=== PATIENT | male | born 1955 | race Hispanic/Latino ===

== ENCOUNTER 2018-03-22 15:22 | Emergency (ER) | payer OTHER | END 2018-03-22 16:44 | disposition home or self-care (01) | LOC: EDH 15:22 | DX: R53.1 Weakness (principal); G47.00 Insomnia, unspecified; Z88.0 Allergy status to penicillin; Z72.0 Tobacco use | CPT/HCPCS: 99281 ==

== ENCOUNTER 2021-10-03 07:45 | Emergency (ER) | payer OTHER ==
[~2021-10-03] VITALS: Ht 162.6 cm; Wt 60.8 kg
[2021-10-03 08:29] LABS: BASOPHILS % (AUTO) 0.8 % (0.0-5.0); HEMATOCRIT 43.7 % (42-54); LYMPHOCYTES % (AUTO) 15.1 % (21.0-51.0); MEAN CORPUSCULAR HEMOGLOBIN 29.9 pg (27.0-33.0); MEAN CORPUSCULAR VOLUME 90.7 fL (79-99); MONOCYTES % (AUTO) 5.7 % (3.0-13.0); NEUTROPHILS % (AUTO) 77.1 % (40.0-77.0); PLATELET COUNT (AUTO) 354 K/uL (130-400); RED BLOOD CELL COUNT(AUTO) 4.82 MIL/uL (4.50-6.20); WHITE BLOOD COUNT (AUTO) 9.7 K/uL (4.8-10.8)
[2021-10-03 08:39] LABS: CREATININE 0.9 mg/dL (0.5-1.5); POTASSIUM 4.2 mmol/L (3.5-5.1)
[2021-10-03 08:43] LABS: ALBUMIN 4.1 g/dL (3.5-5.0); BILIRUBIN,TOTAL 0.8 mg/dL (0.2-1.0); TOTAL PROTEIN, SERUM 8.6 g/dL (6.0-8.3)
[2021-10-03 09:08] LABS: APPEARANCE,URINE Clear (CLEAR); BILIRUBIN,URINE Negative (NEGATIVE); COLOR,URINE Yellow (YELLOW); GLUCOSE, URINE (UA) Negative (NEGATIVE); KETONES,URINE 40 mg/dL (NEGATIVE); LEUKOCYTE ESTERASE ,URINE Negative (NEGATIVE); NITRATE,URINE Negative (NEGATIVE); OCCULT BLOOD,URINE Moderate (NEGATIVE); PROTEIN,URINE Trace mg/dL (NEGATIVE); UROBILINOGEN,URINE 0.2 mg/dL (0.2-1.0)
[2021-10-03 09:27] LABS: BACTERIA,URINE Rare /HPF (None Seen); SQUAMOUS EPITHELIAL CELL,UR Rare /HPF (0-2); WBC,URINE 0-1 /HPF (0-1)
[2021-10-03] MEDS ORDERED: 0.9%NACL 1000ML 1,000 ML IV ONE (09:30)
[2021-10-03] MEDS ORDERED: ONDANSETRON 4MG INJ ONE (09:46)
[2021-10-03] MEDS ORDERED: MORPHINE 4 MG SYG ONE (09:46)
[2021-10-03] MEDS ORDERED: MORPHINE 4 MG SYG IM ONE (10:00)
[2021-10-03] MEDS ORDERED: ONDANSETRON 4MG INJ IVP ONE (10:00)
[2021-10-03] MEDS ORDERED: NAPR-1180 PO (11:48)
[2021-10-03 11:56] VITALS: BP 149/70
== END 2021-10-03 12:08 | disposition home or self-care, planned readmission (81) ==
LOC: EDH 07:45
DX: R33.9 Retention of urine, unspecified (principal); R10.2 Pelvic and perineal pain; K40.90 Unilateral inguinal hernia, without obstruction or gangrene, not specified as recurrent; E86.0 Dehydration
CPT/HCPCS: 36415; 74176; 80053; 81001; 82550; 85025; 96361; 96372; 96374; 99285; J2270; J2405; J7030

== ENCOUNTER 2021-10-13 00:17 | Emergency (ER) | payer OTHER ==
[~2021-10-13] VITALS: Ht 162.6 cm; Wt 70.8 kg
[~2021-10-13 00:17] MED LIST: NAPR-1180 PO
[2021-10-13 00:48] LABS: APPEARANCE,URINE Cloudy (CLEAR); BILIRUBIN,URINE Negative (NEGATIVE); COLOR,URINE Yellow (YELLOW); GLUCOSE, URINE (UA) Negative (NEGATIVE); KETONES,URINE Trace mg/dL (NEGATIVE); LEUKOCYTE ESTERASE ,URINE Large (NEGATIVE); NITRATE,URINE Negative (NEGATIVE); OCCULT BLOOD,URINE Moderate (NEGATIVE); PH,URINE 6.5 (5.0-8.0); PROTEIN,URINE Trace mg/dL (NEGATIVE); UROBILINOGEN,URINE 0.2 mg/dL (0.2-1.0)
[2021-10-13 00:58] LABS: BACTERIA,URINE Rare /HPF (None Seen); MUCUS,URINE Rare LPF (None Seen); RBC,URINE None Seen /HPF (0-1); SQUAMOUS EPITHELIAL CELL,UR Few /HPF (0-2)
[2021-10-13] MEDS ORDERED: CEFTRIAXONE 1G VIAL IVP ONE (02:00)
[2021-10-13] MEDS ORDERED: PHENAZOPYRIDINE HCL 200 MG TABLET PO ONE (02:00)
[2021-10-13 02:47] LABS: BASOPHILS % (AUTO) 0.4 % (0.0-5.0); EOSINOPHILS % (AUTO) 0.6 % (0.0-8.0); HEMATOCRIT 37.1 % (42-54); MEAN CORPUSCULAR HEMOGLOBIN 31.3 pg (27.0-33.0); MEAN CORPUSCULAR VOLUME 92.1 fL (79-99); NEUTROPHILS % (AUTO) 80.3 % (40.0-77.0); PLATELET COUNT (AUTO) 283 K/uL (130-400); RED BLOOD CELL COUNT(AUTO) 4.03 MIL/uL (4.50-6.20); RED CELL DISTRIBUTION WIDTH 13.8 % (11.0-15.5); WHITE BLOOD COUNT (AUTO) 10.6 K/uL (4.8-10.8)
[2021-10-13 03:11] LABS: CREATININE 0.7 mg/dL (0.5-1.5); POTASSIUM 4.3 mmol/L (3.5-5.1)
[2021-10-13] MEDS ORDERED: MACR100 PO (04:22)
[2021-10-13] MEDS ORDERED: PHEN-847 PO (04:22)
[2021-10-13 04:45] VITALS: BP 137/72
== END 2021-10-13 04:46 | disposition home or self-care (01) ==
LOC: EDH 00:17
DX: T83.518A Infection and inflammatory reaction due to other urinary catheter, initial encounter (principal); N39.0 Urinary tract infection, site not specified; Y84.6 Urinary catheterization as the cause of abnormal reaction of the patient, or of later complication, without mention of misadventure at the time of the procedure; Z79.1 Long term (current) use of non-steroidal anti-inflammatories (NSAID)
CPT/HCPCS: 36415; 76770; 80048; 81001; 83605; 85025; 87077; 87088; 87186; 96374; 99284; J0696

== ENCOUNTER → 2021-12-21 | Outpatient (CLI) | payer OTHER, MEDICARE ==
[~2021-12-21] MED LIST changes: +MACR100 PO; +PHEN-847 PO
== END | disposition home or self-care (01) ==
LOC: RAH 09:08
PROVIDERS: ATTEND Internal Medicine
DX: R14.0 Abdominal distension (gaseous) (principal)
CPT/HCPCS: 76700

== ENCOUNTER 2022-01-24 07:20 | Emergency (ER) | payer OTHER, MEDICARE ==
[~2022-01-24] VITALS: Ht 162.6 cm; Wt 65.8 kg
[2022-01-24] MEDS ORDERED: ORPHENADRINE CITRATE 30 MG/ML ML IM ONE (08:00)
[2022-01-24] MEDS ORDERED: MORPHINE 4 MG SYG IM ONE (08:00)
[2022-01-24 08:19] LABS: BASOPHILS % (AUTO) 0.3 % (0.0-5.0); EOSINOPHILS % (AUTO) 1.6 % (0.0-8.0); LYMPHOCYTES % (AUTO) 11.6 % (21.0-51.0); MEAN CORPUSCULAR HEMOGLOBIN 30.3 pg (27.0-33.0); MEAN CORPUSCULAR HGB CONC 33.8 g/dL (32.0-36.0); MEAN CORPUSCULAR VOLUME 89.9 fL (79-99); MONOCYTES % (AUTO) 8.7 % (3.0-13.0); NEUTROPHILS % (AUTO) 77.2 % (40.0-77.0); PLATELET COUNT (AUTO) 331 K/uL (130-400); RED BLOOD CELL COUNT(AUTO) 3.56 MIL/uL (4.50-6.20); WHITE BLOOD COUNT (AUTO) 8.8 K/uL (4.8-10.8)
[2022-01-24 08:19] LABS: APPEARANCE,URINE CLEAR (CLEAR); BILIRUBIN,URINE NEGATIVE (NEGATIVE); COLOR,URINE YELLOW (YELLOW); GLUCOSE, URINE (UA) NEGATIVE (NEGATIVE); KETONES,URINE NEGATIVE (NEGATIVE); LEUKOCYTE ESTERASE ,URINE NEGATIVE (NEGATIVE); NITRATE,URINE NEGATIVE (NEGATIVE); OCCULT BLOOD,URINE SMALL (NEGATIVE); PROTEIN,URINE NEGATIVE (NEGATIVE); UROBILINOGEN,URINE 0.2 mg/dL (0.2-1.0)
[2022-01-24 08:42] LABS: BACTERIA,URINE Rare /HPF (None Seen); RBC,URINE 0-1 /HPF (0-1); SQUAMOUS EPITHELIAL CELL,UR Rare /HPF (0-2); WBC,URINE 0-1 /HPF (0-1)
[2022-01-24 09:36] LABS: CREATININE 0.7 mg/dL (0.5-1.5); MAGNESIUM 1.8 mg/dL (1.80-2.40); POTASSIUM 3.7 mmol/L (3.5-5.1)
[2022-01-24] MEDS ORDERED: KETOROLAC 60 MG VIAL (30MG/ML) IM ONE (10:30)
[2022-01-24 12:08] VITALS: BP 121/49
[2022-01-24] MEDS ORDERED: TRAM50TA4 PO (12:44)
[2022-01-24] MEDS ORDERED: IBUP-2070 PO (12:44)
[2022-01-24] MEDS ORDERED: DIAZ2TAB PO (12:44)
== END 2022-01-24 12:59 | disposition home or self-care (01) ==
LOC: EDH 07:20
DX: M79.18 Myalgia, other site (principal); M54.2 Cervicalgia; R51.9 Headache, unspecified; M54.6 Pain in thoracic spine; E78.00 Pure hypercholesterolemia, unspecified; Z79.1 Long term (current) use of non-steroidal anti-inflammatories (NSAID)
CPT/HCPCS: 99284; 82550; 83735; 84484; 80048; 85025; 81001; 36415; 96372 ×3; 93005; J2270; J1885; J2360

== ENCOUNTER → 2022-05-30 | Outpatient (CLI) | payer OTHER, MEDICARE ==
[~2022-05-30] MED LIST changes: +DIAZ2TAB PO; +IBUP-2070 PO; +TRAM50TA4 PO
== END | disposition home or self-care (01) ==
LOC: RAH 06:55
PROVIDERS: ATTEND Internal Medicine
DX: R10.9 Unspecified abdominal pain (principal)
CPT/HCPCS: 78264; A9541

== ENCOUNTER 2022-08-02 07:10 | Day surgery (SDC) | payer OTHER, MEDICARE ==
[2022-07-27 10:43] VITALS: BP 156/68
[2022-07-27 10:49] LABS: BASOPHILS % (AUTO) 0.7 % (0.0-5.0); EOSINOPHILS % (AUTO) 1.2 % (0.0-8.0); HEMATOCRIT 38.7 % (42-54); LYMPHOCYTES % (AUTO) 16.3 % (21.0-51.0); MEAN CORPUSCULAR HEMOGLOBIN 29.7 pg (27.0-33.0); MEAN CORPUSCULAR VOLUME 92.6 fL (79-99); MONOCYTES % (AUTO) 4.6 % (3.0-13.0); NEUTROPHILS % (AUTO) 76.8 % (40.0-77.0); PLATELET COUNT (AUTO) 320 K/uL (130-400); RED BLOOD CELL COUNT(AUTO) 4.18 MIL/uL (4.50-6.20); RED CELL DISTRIBUTION WIDTH 14.9 % (11.0-15.5); WHITE BLOOD COUNT (AUTO) 7.4 K/uL (4.8-10.8)
[2022-07-27 10:57] LABS: CREATININE 0.9 mg/dL (0.5-1.5); POTASSIUM 4.1 mmol/L (3.5-5.1)
[2022-07-27 11:13] LABS: APPEARANCE,URINE CLEAR (CLEAR); BILIRUBIN,URINE NEGATIVE (NEGATIVE); COLOR,URINE LIGHT-YELLOW (YELLOW); GLUCOSE, URINE (UA) NEGATIVE (NEGATIVE); KETONES,URINE NEGATIVE (NEGATIVE); LEUKOCYTE ESTERASE ,URINE NEGATIVE Leu/uL (NEGATIVE); NITRATE,URINE NEGATIVE (NEGATIVE); PH,URINE 5.5 (5.0-8.0); PROTEIN,URINE NEGATIVE (NEGATIVE); UROBILINOGEN,URINE 0.2 mg/dL (0.2-1.0)
[2022-07-27 11:25] LABS: BACTERIA,URINE RARE /HPF (None Seen); MUCUS,URINE RARE LPF (None Seen); WBC,URINE 0-1 /HPF (0-1)
[2022-08-02] VITALS (11 sets, daily range): BP systolic 75–142; BP diastolic 37–71
[~2022-08-02] VITALS: Ht 162.6 cm; Wt 74.4 kg
[2022-08-02] MEDS ORDERED: LACTATED RINGERS 1000ML 1,000 ML IV ONE (08:00)
[2022-08-02] MEDS ORDERED: GENTAMICIN 80 MG/NS 100 ML PB 100 ML IV PRN (08:00)
[2022-08-02] MEDS ORDERED: FAMOTIDINE 20MG VIAL IV ONE (08:12)
[2022-08-02] MEDS: CEFTRIAXONE 1G VIAL IVPB PRN ×2 (08:22→09:42)
[2022-08-02] MEDS ORDERED: LIDOCAINE PF 100MG/5ML (2%) SYRINGE 5ML ONE (09:32)
[2022-08-02] MEDS ORDERED: PROPOFOL 10 MG/ML 20ML VIAL IV ONE ×2 (09:32→09:58)
[2022-08-02] MEDS ORDERED: FENTANYL CITRATE PF 50 MCG/1 ML 2ML VIAL ONE (09:59)
[2022-08-02] MEDS ORDERED: GLYCOPYRROLATE 1 MG/5 ML SYRINGE ONE (10:20)
== END 2022-08-02 11:29 | disposition home or self-care (01) ==
LOC: DAH 07:10
PROVIDERS: ATTEND Urology
DX: R97.20 Elevated prostate specific antigen [PSA] (principal); C61 Malignant neoplasm of prostate; Z20.822 Contact with and (suspected) exposure to COVID-19; K21.9 Gastro-esophageal reflux disease without esophagitis; E78.5 Hyperlipidemia, unspecified; M19.90 Unspecified osteoarthritis, unspecified site; Z79.899 Other long term (current) drug therapy; Z83.3 Family history of diabetes mellitus; Z98.890 Other specified postprocedural states; Z79.01 Long term (current) use of anticoagulants
CPT/HCPCS: 80048; 85025; 87088; 87426; 81001; 36415; 93005; 55700; 88305; 76942; 76872; A6260; A4663; J7120; J3490 ×2; J3010; J2001; J0696; J2704 ×2; J1580; A4215 ×2; A4649; A4223; A4222; A4221; A4600

== ENCOUNTER → 2022-11-13 | Outpatient (CLI) | payer OTHER, MEDICARE | END | disposition home or self-care (01) | LOC: SHCH 15:36 | PROVIDERS: ATTEND Internal Medicine Cardiovascular Disease | DX: I65.23 Occlusion and stenosis of bilateral carotid arteries (principal); R09.89 Other specified symptoms and signs involving the circulatory and respiratory systems | CPT/HCPCS: 93880 ==

== ENCOUNTER → 2022-11-21 | Outpatient (CLI) | payer OTHER, MEDICARE ==
[2022-11-21 16:33] LABS: CREATININE 0.9 mg/dL (0.5-1.5); POTASSIUM 3.8 mmol/L (3.5-5.1)
== END | disposition home or self-care (01) ==
LOC: LAB 13:50
PROVIDERS: ATTEND Internal Medicine Cardiovascular Disease
DX: I10 Essential (primary) hypertension (principal)
CPT/HCPCS: 36415; 80048

== ENCOUNTER → 2022-11-26 | Outpatient (CLI) | payer OTHER, MEDICARE ==
[~2022-11-26] MED LIST changes: -DIAZ2TAB PO; -IBUP-2070 PO; +IOHEXOL 350 MG/ML 100ML INFUS..BTL IV ONE; -MACR100 PO; -NAPR-1180 PO; -PHEN-847 PO; -TRAM50TA4 PO
== END | disposition home or self-care (01) ==
LOC: RAH 09:08
PROVIDERS: ATTEND Internal Medicine Cardiovascular Disease
DX: I65.23 Occlusion and stenosis of bilateral carotid arteries (principal)
CPT/HCPCS: 70498; Q9967

== ENCOUNTER → 2022-12-24 | Outpatient (CLI) | payer OTHER, MEDICARE | END | disposition home or self-care (01) | LOC: RAH 12:58 | PROVIDERS: ATTEND Internal Medicine Cardiovascular Disease | DX: G81.94 Hemiplegia, unspecified affecting left nondominant side (principal) | CPT/HCPCS: 70551 ==

== ENCOUNTER 2023-01-04 06:33 | Day surgery (SDC) | payer OTHER, MEDICARE ==
[2023-01-02 09:00] LABS: BASOPHILS # (AUTO) 0.04 K/uL (0.00-0.20); BASOPHILS % (AUTO) 0.6 % (0.0-5.0); EOSINOPHILS # (AUTO) 0.09 K/uL (0.00-0.70); EOSINOPHILS % (AUTO) 1.2 % (0.0-8.0); HEMATOCRIT 40.4 % (42-54); IMMATURE GRANULOCYTE ABSOLUTE 0.04 K/uL (0-1); LYMPHOCYTES # (AUTO) 1.2 K/uL (1.0-4.8); MEAN CORPUSCULAR HEMOGLOBIN 30.8 pg (27.0-33.0); MEAN CORPUSCULAR HGB CONC 32.4 g/dL (32.0-36.0); MEAN CORPUSCULAR VOLUME 94.8 fL (79-99); MONOCYTES # (AUTO) 0.5 K/uL (0.1-1.0); MONOCYTES % (AUTO) 7.5 % (3.0-13.0); NEUTROPHILS # (AUTO) 5.4 K/uL (1.8-7.7); NEUTROPHILS % (AUTO) 74.1 % (40.0-77.0); PLATELET COUNT (AUTO) 291 K/uL (130-400); RED BLOOD CELL COUNT(AUTO) 4.26 MIL/uL (4.50-6.20); RED CELL DISTRIBUTION WIDTH 14.4 % (11.0-15.5); WHITE BLOOD COUNT (AUTO) 7.2 K/uL (4.8-10.8)
[2023-01-02 09:02] VITALS: BP 173/70; PULSE 72; RESP 18
[2023-01-02 09:02] LABS: ADD UA MICROSCOPIC YES; APPEARANCE,URINE CLEAR (CLEAR); BILIRUBIN,URINE NEGATIVE (NEGATIVE); COLOR,URINE LIGHT-YELLOW (YELLOW); GLUCOSE, URINE (UA) NEGATIVE (NEGATIVE); KETONES,URINE NEGATIVE (NEGATIVE); LEUKOCYTE ESTERASE ,URINE NEGATIVE Leu/uL (NEGATIVE); NITRATE,URINE NEGATIVE (NEGATIVE); OCCULT BLOOD,URINE MODERATE (NEGATIVE); PH,URINE 5.5 (5.0-8.0); PROTEIN,URINE NEGATIVE (NEGATIVE); UROBILINOGEN,URINE 0.2 mg/dL (0.2-1.0)
[2023-01-02 09:05] LABS: MUCUS,URINE RARE LPF (None Seen)
[2023-01-02 09:15] LABS: INR 0.93 (0.85-1.15); PROTHROMBIN TIME 10.3 SEC (9.6-11.6)
[2023-01-02 09:16] LABS: PARTIAL THROMBOPLASTIN TIME 28.7 SEC (26.3-35.5)
[2023-01-02 09:17] LABS: CREATININE 0.9 mg/dL (0.5-1.5); POTASSIUM 4.6 mmol/L (3.5-5.1)
[2023-01-02 09:53] LABS: B-TYPE NATRIURETIC PEPTIDE 75 pg/mL (0-100)
[2023-01-04] VITALS (11 sets, daily range): BP systolic 127–159; BP diastolic 47–74; PULSE 55–81; RESP 10–18
[~2023-01-04] VITALS: Ht 154.9 cm; Wt 72.3 kg
[~2023-01-04 06:33] MED LIST changes: +ACET-2743 PO; +AEC81 PO; +ATOR10 PO; +CHOL2000 PO; +CLOP75TA32 PO; +FERR324T4 PO; -IOHEXOL 350 MG/ML 100ML INFUS..BTL IV ONE; +LINA145C PO; +METO-296 PO; +METO5TAB87 PO; +PANT40TA54 PO; +TAMS-1 PO; +TRAZ-187 PO; +VITAMIN B12 PO
[2023-01-04] MEDS ORDERED: 0.9%NACL 1000ML 1,000 ML IV ONE (07:08)
[2023-01-04] MEDS ORDERED: LIDOCAINE HCL 400MG/20ML VIAL ONE (09:24)
[2023-01-04] MEDS ORDERED: SODIUM BICARB 50MEQ 50ML VIAL 50 ML ONE (09:25)
[2023-01-04] MEDS ORDERED: IODIXANOL 320 MG/ML 100 ML VIAL ONE (09:25)
[2023-01-04] MEDS ORDERED: NITROGLYCERIN 50MG VIAL ONE (09:25)
[2023-01-04] MEDS ORDERED: MEPERIDINE-PF 25 MG/ML SYG ONE (10:25)
[2023-01-04] MEDS ORDERED: MIDAZOLAM HCL 1 MG/ML 2ML VIAL ONE (10:26)
[2023-01-04] MEDS ORDERED: DiphenhydrAMINE HCL 50 MG/ML VIAL ONE (10:49)
[2023-01-04] MEDS ORDERED: SOLU-MEDROL 125MG VIAL ONE (10:58)
[2023-01-04] MEDS ORDERED: 0.9%NACL 1000ML 1,000 ML IV SCH (11:30)
== END 2023-01-04 16:30 | disposition home or self-care (01) ==
LOC: DAH 06:33
PROVIDERS: ATTEND Internal Medicine Cardiovascular Disease
DX: I65.23 Occlusion and stenosis of bilateral carotid arteries (principal); Z87.891 Personal history of nicotine dependence; Z79.82 Long term (current) use of aspirin; Z86.73 Personal history of transient ischemic attack (TIA), and cerebral infarction without residual deficits; Z79.01 Long term (current) use of anticoagulants; Z79.899 Other long term (current) drug therapy
CPT/HCPCS: 80048; 83880; 85025; 85610; 85730; 81001; 36415; 71045; 93005; 36223; 36226; C1769; C1894; C1760; J1200; J3490 ×2; J7030; J2930; J2250; J2175; J1644; Q9967; A4215; A4222; A4221; A4663; A4216; A4606; A4223 ×3; 96360; 96361; 99156; 99157

== ENCOUNTER 2023-08-13 11:54 | Emergency (ER) | payer OTHER, MEDICARE ==
[~2023-08-13] VITALS: Ht 162.6 cm; Wt 67.1 kg
[2023-08-13] MEDS: HYDROCODONE/ACETAMINOPHEN 5/325 MG TAB PO ONE (13:04)
[2023-08-13] MEDS: CYCLOBENZAPRINE HCL 10 MG TABLET PO ONE (13:04)
[2023-08-13] MEDS: DEXAMETHASONE SOD PHOSPHATE 4 MG/ML 1ML VIAL IVP ONE (13:04)
[2023-08-13] MEDS: KETOROLAC 30MG VIAL (30MG/ML) IVP ONE (13:05)
[2023-08-13] MEDS ORDERED: IBUP-2070 PO (13:49)
[2023-08-13] MEDS ORDERED: CYCL-309 PO (13:49)
[2023-08-13 14:12] VITALS: BP 138/69; PULSE 73; RESP 17; O2SAT 18
== END 2023-08-13 14:15 | disposition home or self-care (01) ==
LOC: EDH 11:54
DX: S39.012A Strain of muscle, fascia and tendon of lower back, initial encounter (principal); E11.9 Type 2 diabetes mellitus without complications; Z79.82 Long term (current) use of aspirin; Z79.899 Other long term (current) drug therapy; Z98.890 Other specified postprocedural states; Z88.8 Allergy status to other drugs, medicaments and biological substances; X58.XXXA Exposure to other specified factors, initial encounter; Y93.89 Activity, other specified; Y92.89 Other specified places as the place of occurrence of the external cause; Y99.8 Other external cause status
CPT/HCPCS: 99284; 96374; 96375; 72100; J1100; J1885

== ENCOUNTER → 2023-08-26 | Outpatient (CLI) | payer OTHER, MEDICARE ==
[~2023-08-26] MED LIST changes: +CYCL-309 PO; +IBUP-2070 PO; +IOHEXOL 350 MG/ML 100ML INFUS..BTL IV ONE
== END | disposition home or self-care (01) ==
LOC: RAH 10:21
PROVIDERS: ATTEND Internal Medicine
DX: M47.26 Other spondylosis with radiculopathy, lumbar region (principal); M54.41 Lumbago with sciatica, right side; M48.07 Spinal stenosis, lumbosacral region; M43.16 Spondylolisthesis, lumbar region
CPT/HCPCS: 72133; Q9967

== ENCOUNTER → 2023-10-01 | Outpatient (CLI) | payer OTHER, MEDICARE ==
[~2023-10-01] MED LIST changes: -IOHEXOL 350 MG/ML 100ML INFUS..BTL IV ONE
[2023-10-01 11:33] LABS: BASOPHILS # (AUTO) 0.04 K/uL (0.00-0.20); BASOPHILS % (AUTO) 0.5 % (0.0-5.0); EOSINOPHILS # (AUTO) 0.11 K/uL (0.00-0.70); EOSINOPHILS % (AUTO) 1.5 % (0.0-8.0); HEMATOCRIT 35.6 % (42-54); IMMATURE GRANULOCYTE ABSOLUTE 0.05 K/uL (0-1); LYMPHOCYTES # (AUTO) 1.3 K/uL (1.0-4.8); LYMPHOCYTES % (AUTO) 16.6 % (21.0-51.0); MEAN CORPUSCULAR HEMOGLOBIN 28.3 pg (27.0-33.0); MEAN CORPUSCULAR HGB CONC 31.7 g/dL (32.0-36.0); MONOCYTES # (AUTO) 0.4 K/uL (0.1-1.0); MONOCYTES % (AUTO) 5.8 % (3.0-13.0); NEUTROPHILS # (AUTO) 5.7 K/uL (1.8-7.7); NEUTROPHILS % (AUTO) 74.9 % (40.0-77.0); PLATELET COUNT (AUTO) 369 K/uL (130-400); RED CELL DISTRIBUTION WIDTH 16.4 % (11.0-15.5); WHITE BLOOD COUNT (AUTO) 7.5 K/uL (4.8-10.8)
[2023-10-01 11:42] LABS: % IRON SATURATION 7.8 % (30-44)
[2023-10-01 11:56] LABS: ALBUMIN 3.7 g/dL (3.5-5.0); BILIRUBIN,TOTAL 0.1 mg/dL (0.2-1.0); CREATININE 0.7 mg/dL (0.5-1.3)
== END | disposition home or self-care (01) ==
LOC: LAB 10:06
PROVIDERS: ATTEND Internal Medicine Gastroenterology
DX: K38.8 Other specified diseases of appendix (principal); D50.9 Iron deficiency anemia, unspecified
CPT/HCPCS: 36415; 80053; 82728; 83540; 83550; 85025

== ENCOUNTER → 2023-10-07 | Outpatient (CLI) | payer OTHER, MEDICARE ==
[~2023-10-07] MED LIST changes: +IOHEXOL-350 75 ML VIAL IV ONE
== END | disposition home or self-care (01) ==
LOC: RAH 10:09
PROVIDERS: ATTEND Internal Medicine Gastroenterology
DX: K38.8 Other specified diseases of appendix (principal); K40.90 Unilateral inguinal hernia, without obstruction or gangrene, not specified as recurrent; K57.30 Diverticulosis of large intestine without perforation or abscess without bleeding; J44.9 Chronic obstructive pulmonary disease, unspecified; M47.815 Spondylosis without myelopathy or radiculopathy, thoracolumbar region
CPT/HCPCS: 74176; Q9967

== ENCOUNTER → 2024-01-08 | Outpatient (CLI) | payer OTHER, MEDICARE ==
[~2024-01-08] MED LIST changes: +HYDR-3421 PO; -IOHEXOL-350 75 ML VIAL IV ONE
== END | disposition home or self-care (01) ==
LOC: SHCH 07:36
PROVIDERS: ATTEND Internal Medicine Cardiovascular Disease
DX: I65.23 Occlusion and stenosis of bilateral carotid arteries (principal); I25.10 Atherosclerotic heart disease of native coronary artery without angina pectoris; E78.5 Hyperlipidemia, unspecified; I10 Essential (primary) hypertension; I69.993 Ataxia following unspecified cerebrovascular disease
CPT/HCPCS: 93880

== ENCOUNTER 2024-01-10 10:59 | Emergency (ER) | payer OTHER, MEDICARE ==
[~2024-01-10] VITALS: Ht 162.6 cm; Wt 69.4 kg
[~2024-01-10 10:59] MED LIST changes: -HYDR-3421 PO
[2024-01-10 11:54] LABS: BASOPHILS # (AUTO) 0.04 K/uL (0.00-0.20); BASOPHILS % (AUTO) 0.6 % (0.0-5.0); EOSINOPHILS # (AUTO) 0.17 K/uL (0.00-0.70); EOSINOPHILS % (AUTO) 2.4 % (0.0-8.0); HEMATOCRIT 32.9 % (42-54); IMMATURE GRANULOCYTE ABSOLUTE 0.02 K/uL (0-1); LYMPHOCYTES # (AUTO) 1.2 K/uL (1.0-4.8); LYMPHOCYTES % (AUTO) 16.6 % (21.0-51.0); MEAN CORPUSCULAR HGB CONC 33.7 g/dL (32.0-36.0); MEAN CORPUSCULAR VOLUME 88.9 fL (79-99); MONOCYTES # (AUTO) 0.4 K/uL (0.1-1.0); NEUTROPHILS # (AUTO) 5.2 K/uL (1.8-7.7); NEUTROPHILS % (AUTO) 75.1 % (40.0-77.0); PLATELET COUNT (AUTO) 265 K/uL (130-400); RED CELL DISTRIBUTION WIDTH 14.6 % (11.0-15.5)
[2024-01-10 12:06] LABS: CREATININE 0.9 mg/dL (0.5-1.3); POTASSIUM 3.5 mmol/L (3.5-5.1)
[2024-01-10 12:10] LABS: ALBUMIN 3.7 g/dL (3.5-5.0); BILIRUBIN,TOTAL 0.3 mg/dL (0.2-1.0); TOTAL PROTEIN, SERUM 7.6 g/dL (6.0-8.3)
[2024-01-10 12:22] LABS: SARS-CoV-2, RNA, NAAT NEGATIVE SARS CoV-2 (NEGATIVE)
[2024-01-10 12:29] LABS: INFLUENZA TYPE A Negative For Type A (NEGATIVE); INFLUENZA TYPE B Negative For Type B (NEGATIVE)
[2024-01-10 13:55] LABS: APPEARANCE,URINE CLEAR (CLEAR); BILIRUBIN,URINE NEGATIVE (NEGATIVE); COLOR,URINE LIGHT-YELLOW (YELLOW); GLUCOSE, URINE (UA) NEGATIVE (NEGATIVE); KETONES,URINE NEGATIVE (NEGATIVE); LEUKOCYTE ESTERASE ,URINE NEGATIVE Leu/uL (NEGATIVE); NITRATE,URINE NEGATIVE (NEGATIVE); PROTEIN,URINE NEGATIVE (NEGATIVE); UROBILINOGEN,URINE 0.2 mg/dL (0.2-1.0)
[2024-01-10 13:59] LABS: ADD UA MICROSCOPIC YES; BACTERIA,URINE RARE /HPF (None Seen); MUCUS,URINE RARE LPF (None Seen); SQUAMOUS EPITHELIAL CELL,UR RARE /HPF (0-2); WBC,URINE 0-1 /HPF (0-1)
[2024-01-10] MEDS ORDERED: HYDR-3421 PO (14:34)
[2024-01-10 15:01] VITALS: BP 131/67; PULSE 84; RESP 18; O2SAT 98
== END 2024-01-10 15:32 | disposition home or self-care (01) ==
LOC: EDH 10:59
DX: G47.00 Insomnia, unspecified (principal); R53.1 Weakness; C61 Malignant neoplasm of prostate; E86.0 Dehydration; E78.00 Pure hypercholesterolemia, unspecified; K21.9 Gastro-esophageal reflux disease without esophagitis; K59.00 Constipation, unspecified; F17.200 Nicotine dependence, unspecified, uncomplicated; Z20.822 Contact with and (suspected) exposure to COVID-19; Z79.899 Other long term (current) drug therapy; Z88.1 Allergy status to other antibiotic agents
CPT/HCPCS: 36415; 71045; 74018; 80053; 81001; 83605; 84484; 85025; 87635; 87804

== ENCOUNTER → 2024-05-25 | Outpatient (CLI) | payer OTHER, MEDICARE ==
[~2024-05-25] MED LIST changes: +HYDR-3421 PO
[2024-05-25 16:27] LABS: CREATININE 0.8 mg/dL (0.5-1.3); POTASSIUM 4.3 mmol/L (3.5-5.1)
== END | disposition home or self-care (01) ==
LOC: LAB 15:24
PROVIDERS: ATTEND Internal Medicine Cardiovascular Disease
DX: I65.23 Occlusion and stenosis of bilateral carotid arteries (principal); I10 Essential (primary) hypertension
CPT/HCPCS: 36415; 80048

== ENCOUNTER → 2024-06-09 | Outpatient (CLI) | payer OTHER, MEDICARE ==
[~2024-06-09] MED LIST changes: +IOHEXOL 350 MG/ML 100ML INFUS..BTL IV ONE
--- NOTE | 2024-06-09 11:41 | HMCIMG ---
CT neck with and without contrast with special attention to the carotid and vertebral artery system bilaterally Comparison Study: none Note: Exposure factors and contrast administration applies to both the CT angiogram of the head and the neck done at the same time. PROTOCOL: Examination is done after contrast administration with 100 cc of Isovue 370 IV. Photography is done at 5 millimeter thick intervals for the head. The study was performed in the axial plane, and reconstructed and photographed in sagittal and coronal planes as well. Findings: Right internal carotid artery stent is seen which is patent. The carotid system is preserved bilaterally without significant atheromatous disease otherwise. There is no aneurysm. There is no occlusion. There is no dissection. The examination of the cervical spine shows no fractures, dislocations, or significant abnormalities. The examination on the neck is unremarkable otherwise. No lymphadenopathy seen. There are no masses. There are no fluid collections. The fat planes are preserved. The parotid glands are intact. Impression: Patent right internal carotid artery stent.. No carotid occlusions. This study was performed using dose reduction techniques to include automated exposure control and/or adjustment of the mA and/or kV according to patient size.
== END | disposition home or self-care (01) ==
LOC: RAH 08:55
PROVIDERS: ATTEND Internal Medicine Cardiovascular Disease
DX: I25.10 Atherosclerotic heart disease of native coronary artery without angina pectoris (principal); Z95.828 Presence of other vascular implants and grafts
CPT/HCPCS: 70498; Q9967

== ENCOUNTER → 2024-06-29 | Outpatient (CLI) | payer OTHER, MEDICARE ==
[~2024-06-29] MED LIST changes: +GADOTERATE MEGLUMINE 10 MMOL/20 ML VIAL IV ONE; -IOHEXOL 350 MG/ML 100ML INFUS..BTL IV ONE
--- NOTE | 2024-06-29 15:05 | HMCIMG ---
MR SPINAL CANAL, LUMB W/WO CON HISTORY: Pain COMPARISON: None TECHNIQUE: MRI of the lumbar spine was performed utilizing multiple pulse sequences in axial , coronal and sagittal plane. Patient was given 15 cc of Clariscan through intravenous route. FINDINGS: Endplate degenerative changes with Schmorl's nodes are noted at the T12-L1 level. Grade 1 anterolisthesis is seen at the L4-5 level. There is left renal cyst measuring 15 mm. No abnormal signal intensity is seen of the visualized bony structure. No loss of vertebral height is seen. There is straightening of normal lumbar curvature which may be related to muscle spasm or positioning. Degenerative disc signals are present at all lumbar spine levels. Visualized distal conus is unremarkable. At the L2-3 level, there is spondylotic disc with bilateral ligamentum flavum hypertrophy causing anterior thecal sac compression with bilateral lateral recess stenosis and minimal bilateral neural foraminal stenosis. The thecal sac measures approximately 8.2 mm in its anterior posterior dimension. At the L3-4 level, there is spondylotic disc with bilateral ligamentum flavum hypertrophy causing anterior thecal sac compression with bilateral lateral recess stenosis and minimal bilateral neural foraminal stenosis. The thecal sac measures approximately 8.2 mm in its anterior posterior dimension. At the L4-5 level, there is spondylotic disc with bilateral ligamentum flavum hypertrophy and facet hypertrophy causing anterior thecal sac compression with bilateral lateral recess stenosis and bilateral neural foraminal stenosis. The thecal sac measures approximately 3.1 mm in its anterior posterior dimension. At the L5-S1 level, there is spondylotic disc with central disc protrusion causing anterior thecal sac compression with bilateral lateral recess stenosis and minimal bilateral neural foraminal stenosis. The thecal sac measures approximately 7.9 mm in its anterior posterior dimension. IMPRESSION: 1. 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
== END | disposition home or self-care (01) ==
LOC: RAH 13:23
PROVIDERS: ATTEND Internal Medicine
DX: M47.816 Spondylosis without myelopathy or radiculopathy, lumbar region (principal); N28.1 Cyst of kidney, acquired; M51.369 Other intervertebral disc degeneration, lumbar region without mention of lumbar back pain or lower extremity pain; M54.31 Sciatica, right side; M47.815 Spondylosis without myelopathy or radiculopathy, thoracolumbar region
CPT/HCPCS: 72158; A9575